=== PATIENT | female | born 1960 | race African-American/Black ===

== ENCOUNTER → 2019-01-19 15:21 | Outpatient (CLI) | payer MEDICARE ==
[2015-09-15 11:28] VITALS: BMI 34.6
[~2019-01-19 15:21] MED LIST: ABILIFY20 MG PO; BAYER CHEWABLE81 MG PO; CATAPRES0.1 MG PO; FLUTICASONE PRO16 GM NASAL; HYDROCODONE-APA1 TAB PO; MYRBETRIQ25 MG PO; NAPROSYN500 MG PO; NEURONTIN600 MG PO; NORVASC5 MG PO; PATANOL 0.1 % OP5 ML EACH EYE; PHENERGAN25 M1 PO; PRAVACHOL20 MG PO; PROZAC20 MG PO; REMERON15 MG PO; TROSPIUM CHLORI20 MG PO; VENTOLIN HFA18 GM INH; WELLBUTRIN SR150 MG PO; XYZAL5 MG PO; ZANTAC150 MG PO; ZESTRIL40 MG PO
[2019-01-19 15:37] LABS: BASOPHILS 0.6 % (0-2); EOSINOPHILS 1.9 % (0-7); HEMATOCRIT 23.3 % (36.0-48.0); IMMATURE GRANULOCYTES 0.2 % (0-5); LYMPHOCYTES 30.7 % (15-50); MCH 23.1 pg (26.0-34.0); MCHC 28.8 g/dL (31.0-37.0); MCV 80.3 fL (80.0-100.0); MEAN PLATELET VOLUME 9.1 fL (7.4-10.4); MONOCYTES 6.5 % (2-11); NEUTROPHILS 60.1 % (40-80); PLATELET COUNT 506 10x3/uL (130-400); RDW 19.1 % (11.5-14.5); WBC 5.2 10x3/uL (4.8-10.8)
[2019-01-19 15:48] LABS: HEMOGLOBIN 6.7 g/dL (12-16)
== END | disposition home or self-care (01) ==
LOC: D.LABREF 15:21
DX: D64.9 Anemia, unspecified (principal)